=== PATIENT | male | born 1950 | race Hispanic/Latino ===

== ENCOUNTER 2022-03-28 11:04 | Inpatient (IN) | payer OTHER ==
[2022-03-28 11:56] LABS: Absolute Lymphocytes (CBC) 1.3 K/uL (0.7-4.9); Hematocrit 38.1 % (39.6-49.0); Lymphocytes % 14.2 % (15.3-44.8); MCV 98.3 fL (80-100); MPV 7.8 fL (7.6-11.3); RBC Red Blood Cell Count 3.87 M/uL (4.33-5.43)
[2022-03-28 12:17] LABS: Specific Gravity 1.015 (1.005-1.030); Urine Bilirubin Negative (Negative); Urine Blood 1+ (Negative); Urine Clarity Clear (Clear); Urine Color Yellow (Yellow); Urine Glucose Negative (Negative); Urine Protein Trace (Negative); Urine Urobilinogen 0.2 mg/dL (0.2-1.0)
[2022-03-28 12:33] LABS: Urine Bacteria <20 /HPF (<20); Urine Mucus 1+ /HPF (None Seen)
[2022-03-28 12:35] LABS: Albumin 3.3 g/dL (3.4-5.0); Bilirubin Direct 0.2 mg/dL (0-0.2); Bilirubin Total 0.6 mg/dL (0.2-1.0); Phosphorus 3.2 mg/dL (2.5-4.9); Potassium 3.6 mmol/L (3.5-5.1); Protein, Total 7.4 g/dL (6.4-8.2); Thyroid Stimulating Hormone 1.36 uIU/mL (0.360-3.740)
[2022-03-28 12:37] LABS: Protime INR 1.05
[2022-03-28 12:48] LABS: UR MICROALBUMIN 6.3 mg/dL (< 1.9)
[2022-03-28 13:56] LABS: SARS-CoV-2 Antigen Rapid Res Negative (Negative)
[2022-03-28] MEDS ORDERED: DIPHENHYDRAMINE 25 MG TAB/CAP PO PRN (15:05)
[2022-03-28] MEDS ORDERED: ACETAMINOPHEN 325 MG TABLET PO PRN (15:05)
[2022-03-28] MEDS ORDERED: LOPERAMIDE HCL 2 MG CAPSULE PO PRN (15:05)
[2022-03-28] MEDS ORDERED: POLYETHYL GLY 3350 17 GM/DOSE PO PRN (15:05)
[2022-03-28] MEDS ORDERED: ONDANSETRON 4 MG/2 ML VIAL IV PRN (15:05)
[2022-03-28] MEDS ORDERED: CEFTRIAXONE 1000 MG/VIAL ONE (15:30)
[2022-03-28] MEDS ORDERED: NA CHLORIDE 0.9% 50 ML ONE (15:38)
[2022-03-28] MEDS: CEFTRIAXONE 1,000 MG in NA CHLORIDE 0.9% 50 ML IVPB SCH ×2 (15:55→21:50)
[2022-03-28] MEDS: NACHLORIDE 0.45% 1,000 ML IV SCH (15:55)
--- NOTE | 2022-03-28 15:59 | RAD REPORT ---
EXAM DESCRIPTION: CT - Abdomen Pelvis W Contrast - 03/28/2022 3:29 pm CLINICAL HISTORY: Abdominal pain/testicle swelling/abscess COMPARISON: none. TECHNIQUE: Computed axial tomography of the abdomen pelvis was obtained. 100 cc Isovue-300 was admin istered intravenously. Oral contrast was not requested which limits evaluation of bowel and appendix All CT scans are performed using dose optimization technique as appropriate and may include automated exposure control or mA/KV adjustment according to patient size. FINDINGS: Moderate hiatal hernia Mild fatty liver Spleen, pancreas, adrenals and kidneys unremarkable Bladder is markedly distended. Large diverticulum stems from left lateral bladder wall. Prostate glan d is moderately enlarged. Small right and small to moderate left inguinal hernias contain fat. Scrotal skin thickening. Moderate fluid collection within the left scrotum. 8 millimeter calcificatio n within the left scrotum. There is no evidence of diverticulitis. IMPRESSION: Marked bladder distention Moderate fluid collection within the left scrotum incompletely evaluated on this exam may represent a hydrocele. Ultrasound is recommended.
[2022-03-28 16:21] VITALS: BMI 25.1
--- NOTE | 2022-03-28 16:56 | RAD REPORT ---
EXAM DESCRIPTION: Yuko Pa And Lat (2 Views)03/28/2022 4:51 pm CLINICAL HISTORY: Weakness COMPARISON: 2015 FINDINGS: Nodular opacity overlying the first left rib is unchanged and likely benign Lungs appear clear of acute infiltrate. The heart is normal size IMPRESSION: No acute abnormalities displayed
[2022-03-28] MEDS ORDERED: PNEUMOCOCCAL VACCINE 0.5 ML IMVAC ONE (17:00)
[2022-03-28] MEDS: ENOXAPARIN 40 MG/0.4 ML SQ SCH (17:52)
--- NOTE | 2022-03-28 19:44 | RAD REPORT ---
EXAM DESCRIPTION: US - Scrotum Testicles - 03/28/2022 7:17 pm CLINICAL HISTORY: Testicular pain COMPARISON: None FINDINGS: Right testicle measures 3.5 x 1.9 x 2.2 centimeters. Echotexture is homogeneous. Normal bl ood flow Left testicle measures 3.5 x 1.9 x 2.2 centimeters centimeters. Increased blood flow 4 millimeter right spermatocele. Right epididymis demonstrates normal echogenicity and size. Normal b lood flow is seen. Left epididymis is normal in size and echotexture. Complex left hydrocele contains debris and septations. It also a calcification. Small to moderate left and small right inguinal hernias contain fat Scrotal skin thickening. Right varicocele IMPRESSION: Increased blood flow left testicle probably orchitis Moderate complex left hydrocele
[2022-03-28] MEDS: ROSUVASTATIN 10 MG TAB PO SCH (20:40)
[2022-03-28] MEDS: carvediloL 25 MG TAB PO SCH (20:40)
[2022-03-28] MEDS: TAMSULOSIN 0.4 MG SR CAP PO SCH (20:41)
[2022-03-28] MEDS: HYDROMORPHONE HCL 1 MG/ML INJ IV PRN (20:48)
[2022-03-28 23:24] VITALS: O2SAT 96
[2022-03-29 03:57] LABS: Absolute Lymphocytes (CBC) 1.8 K/uL (0.7-4.9); Hematocrit 32.7 % (39.6-49.0); Lymphocytes % 20.3 % (15.3-44.8); MCV 97.9 fL (80-100); MPV 7.7 fL (7.6-11.3); RBC Red Blood Cell Count 3.34 M/uL (4.33-5.43)
[2022-03-29] MEDS ORDERED: HOME MED 1 EA UNK (Omeprazole [Omeprazole] 20 MG Capsule.Dr) PO SCH (09:00)
[2022-03-29] MEDS ORDERED: HOME MED 1 EA UNK (Losartan Potassium [Losartan Potassium] 100 MG Tablet) PO SCH (09:00)
[2022-03-29] MEDS ORDERED: HOME MED 1 EA UNK (Rosuvastatin Calcium [Rosuvastatin Calcium] 20 MG Tablet) PO SCH (09:00)
[2022-03-29] MEDS: carvediloL 25 MG TAB PO SCH ×2 (10:18→21:00)
[2022-03-29] MEDS: CEFTRIAXONE 1,000 MG in NA CHLORIDE 0.9% 50 ML IVPB SCH ×2 (10:18→20:46)
[2022-03-29] MEDS: ENOXAPARIN 40 MG/0.4 ML SQ SCH (10:18)
[2022-03-29] MEDS: PANTOPRAZOLE 40MG TABLET PO SCH (10:18)
[2022-03-29] MEDS: LOSARTAN POTASSIUM 50 MG TABLET PO SCH (10:19)
[2022-03-29] MEDS: HYDROMORPHONE HCL 1 MG/ML INJ IV PRN ×2 (15:14→20:46)
--- NOTE | 2022-03-29 17:11 | P.CNS ---
Date of Consult: 03/29/22 Reason for Consult: Suspected scrotal abscess Requesting Physician: Sunny Mosquera V Primary Care Provider: Sunny Mosquera Chief Complaint: Left scrotal/testicular pain History of Present Illness: 71-year-old gentleman with hypertension, hypercholesterolemia and GERD s/p left inguinal hernia repair several years ago presents with left hemiscrotal swelling and pain since Monday. He notes he was helping a worker who was installing some posts in his yard lift some heavy things on Monday, and 2 days later, he noted the swelling to occur. He has pre-existing LUTS presumptively due to BPH and has been managed on Flomax 0.4 mg daily by a urologist he saw in consultation at either [facility] or [facility] in [place] because of elevated PSA. He never underwent a prostate biopsy. He has been told he has an enlarged prostate, and his LUTS consist of the following: Incomplete emptying 5 Frequency 4 Urgency 2 Intermittency 4 Weak stream 5 Straining 2 AUA symptom score > 22/35 He had sexual activity with his , vaginal and occasionally oral prior to this occurring. He also acknowledges having seen a bit of gross hematuria/urethral bleeding around this time, but that has resolved. He had some asbestos exposure and worked with [employer] but no direct organic chemical exposures. Past medical and surgical history -relevant documented above Possible allergy to Levaquin Social history: Former social smoker during college Examination: Afebrile and vital signs stable throughout hospital course Well-appearing, well-developed, well-nourished, no acute distress No dyspnea or sign of respiratory distress Alert, awake, oriented x3 Abdomen soft, nontender, nondistended, no masses, no suprapubic tenderness Genitalia: Uncircumcised without lesion, orthotopic meatus patent without discharge. No urethral tenderness. No crepitus in the suprapubic region or in the phallus. Left hemiscrotum enlarged relative to the right due to firm and tender left testis. No scrotal crepitus noted. No abscess noted. Subcutaneous inferior left hemiscrotal skin nodule consistent with possible sebaceous cystic lesion. Musculoskeletal: Ambulatory with ease and without need for walking aid or assistance Laboratory values 03/28/2022 and 03/29/2022 WBC 9.3-8.7, creatinine 0.97, UA micro >50 WBC per hpf, 3+ leukocyte Estrace, negative nitrites Urine culture pending Scrotal ultrasound 03/28/2022 impression: Increased blood flow to the left testis consistent with orchitis. Moderately complex left hydrocele noted. Normal right testis and epididymis. CT abdomen and pelvis with contrast 03/28/2022 impression: Scrotal skin thickening and 8 mm calcification within the left scrotum. Marked bladder distention with large diverticulum from left lateral wall of the bladder. Prostate gland moderately enlarged. Moderate fluid collection within the left scrotum. Small right and small to moderate left inguinal hernias containing fat. Normal kidneys, adrenals, spleen and pancreas. Assessment and recommendation: 71-year-old gentleman with hypertension, hypercholesterolemia and GERD s/p left inguinal hernia repair with BPH with obstruction and LUTS refractory to Flomax 0.4 mg daily, now complicated by left epididymoorchitis with reactive complex hydrocele, with left lateral wall bladder diverticulum developed as a stigmata of obstruction, and 8 mm calcification within the left scrotum seen on ultr asound potentially consistent with left hemiscrotal superficial cystic skin lesion. -I counseled the patient and his that the infection in his testicle is a complication of his BPH, and the recommendation at this point would be surgical therapy to manage his obstruction. This is all the more poignant given the bladder diverticulum observed on CT scan. -To that end, I recommend at least 2 to 3 weeks of culture sensitive antimicrobial therapy to resolve the orchitis -Bactrim, Cipro/Levaquin, or an oral third/fourth generation cephalosporin recommended to have adequate tissue penetration. -Increase Flomax to 0.8 mg daily -After resolution of the orchitis in about 3 weeks, obtain a PSA blood test with at least 3 to 5 days of sexual abstinence prior -Follow-up for cystoscopy and MICHAEL in about a month, and we will review the result of the PSA and determine the appropriateness for surgical therapy -I did discuss with him the potential role for a 5 alpha reductase inhibitor, but since this takes at minimum 6 months to begin to see a benefit, 1 to 2 years of therapy to achieve the benefit, and only works in about 65% of men, it is not recommended as the approach once a man is experienced a complication of his obstruction due to BPH. At this point, surgical therapy is recommended. -We will also consider excision of the superficial scrotal cystic skin lesion at the time of operative management of his prostate since I have seen very esoteric malignant diagnoses from what were otherwise apparent to be/looked like sebaceous cysts. Allergies levofloxacin [From Levaquin] Allergy (Verified 03/28/22 20:39) Rash Home medications list reviewed: Yes Home Medications: Carvedilol [Coreg] 25 mg PO BID 03/28/22 Losartan Potassium 100 mg PO DAILY 03/28/22 Omeprazole 20 mg PO DAILY 03/28/22 Rosuvastatin Calcium 20 mg PO DAILY 03/28/22 Tamsulosin HCl [Flomax] 0.4 mg PO BEDTIME 03/28/22 - Past Medical/Surgical History Diabetic: No -: HTN -: acid reflux -: arthritis -: pseudogout - Social History Smoking Status: Former smoker Alcohol use: Yes Place of Residence: Home Physical Examination Temp Pulse Resp BP Pulse Ox 98.2 F 77 16 146/87 H 95 03/29/22 16:00 03/29/22 16:00 03/29/22 16:00 03/29/22 16:00 03/29/22 16:00 General: Alert, In no apparent distress, Oriented x3, Cooperative HEENT: Atraumatic, Normocephalic, Mucous membr. moist/pink, Sclerae nonicteric Respiratory: Normal air movement Gastrointestinal: Soft and benign, Non-distended, No masses, No rebound, No guarding Neurological: Normal gait, Normal speech External genitalia: Other (as above) Laboratory Data (last 24 hrs) 03/29/22 02:57: Sodium 139, Potassium 4.0, BUN 12, Creatinine 0.86, Glucose 113 H 03/29/22 02:57: WBC 8.70, Hgb 11.1 L, Hct 32.7 L, Plt Count 232 Conclusions/Impression: see above in HPI under assessment and recommendations Critical Care: No Time Spent Managing Pts care (In Minutes): 45
[2022-03-29] MEDS ORDERED: CEFTRIAXONE 1000 MG/VIAL ONE (20:11)
[2022-03-29] MEDS ORDERED: NA CHLORIDE 0.9% 100 ML ONE (20:50)
[2022-03-29] MEDS: ROSUVASTATIN 10 MG TAB PO SCH (21:00)
[2022-03-29] MEDS: TAMSULOSIN 0.4 MG SR CAP PO SCH (21:00)
--- NOTE | 2022-03-29 21:00 | P.PN ---
Subjective Date of Service: 03/29/22 Primary Care Provider: Sunny Mosquera Chief Complaint: Left scrotal/testicular pain Subjective: Improving HIS PAIN IS LOT BETTER COMPARED TO YESTERDAY. DR MILLS SAW PATIENT TODAY. Review of Systems 10-point ROS is otherwise unremarkable General: Weakness Integumentary: As per HPI Physical Examination - Vital Signs Temperature: 98.2 F Blood Pressure: 146/87 Pulse: 77 Respirations: 16 Pulse Ox (%): 95 - Physical Exam General: Oriented x3, Moderate distress HEENT: Atraumatic, PERRLA, EOMI Neck: Supple, JVD not distended Respiratory: Clear to auscultation bilaterally, Normal air movement Cardiovascular: Regular rate/rhythm, Normal S1 S2 Gastrointestinal: Normal bowel sounds, No tenderness Musculoskeletal: No tenderness Integumentary: No rashes Neurological: Normal speech, Normal tone, Normal affect Lymphatics: No axilla or inguinal lymphadenopathy External genitalia: Other (L SCRTOTAL TENDERNESS AND SWELLING OF EPIDIDYMIS IMPROVED. ) - Studies Laboratory Data (last 24 hrs) 03/29/22 02:57: Sodium 139, Potassium 4.0, BUN 12, Creatinine 0.86, Glucose 113 H 03/29/22 02:57: WBC 8.70, Hgb 11.1 L, Hct 32.7 L, Plt Count 232 Medications List Reviewed: Yes Assessment And Plan - Current Problems (Diagnosis) (1) Acute epididymitis Current Visit: Yes Status: Acute Plan: SEVERE PAIN AND SWELLING HAS IMPROVED SOME. MAY BE ABLE TO GO HOME IN AM. (2) BPH (benign prostatic hyperplasia) Current Visit: Yes Status: Chronic Plan: PER DR. Ellsworth WILL NEED SURGERY. ABX FOR 2-3 WEEKS BEFORE THAT.
[2022-03-29] MEDS ORDERED: LIDOCAINE JELLY 2% 5 ML SYRINGE TOP ONE ×2 (21:48→22:02)
[2022-03-29] MEDS ORDERED: TAMSULOSIN 0.4 MG SR CAP PO SCH (22:00)
[2022-03-30] MEDS: NACHLORIDE 0.45% 1,000 ML IV SCH (01:20)
[2022-03-30 03:52] LABS: Absolute Lymphocytes (CBC) 1.5 K/uL (0.7-4.9); Hematocrit 32.6 % (39.6-49.0); Lymphocytes % 21.4 % (15.3-44.8); MCV 98.5 fL (80-100); MPV 7.6 fL (7.6-11.3); RBC Red Blood Cell Count 3.31 M/uL (4.33-5.43)
[2022-03-30 04:04] LABS: Potassium 3.8 mmol/L (3.5-5.1)
[2022-03-30] MEDS ORDERED: POTASSIUM 25 MEQ EFFERV TAB PO ONE (06:00)
[2022-03-30] MEDS: PANTOPRAZOLE 40MG TABLET PO SCH (07:30)
[2022-03-30] MEDS: carvediloL 25 MG TAB PO SCH (09:00)
[2022-03-30] MEDS: ENOXAPARIN 40 MG/0.4 ML SQ SCH (09:00)
[2022-03-30] MEDS: LOSARTAN POTASSIUM 50 MG TABLET PO SCH (09:00)
[2022-03-30 09:23] VITALS: BP 176/97; TEMP 98.4
[2022-03-30] MEDS: CEFTRIAXONE 1,000 MG in NA CHLORIDE 0.9% 50 ML IVPB SCH (09:51)
[2022-03-30] MEDS ORDERED: PNEUMOCOCCAL VACCINE 0.5 ML IMVAC ONE (11:00)
--- NOTE | 2022-03-30 15:43 | EKG ---
Test Date: 2022-03-29 Test Time: 08:51:03 Qualification Engineer: ISAÍAS MEASUREMENT RESULTS: Intervals: Rate: 76 [place]: 160 QRSD: 80 QT: 416 QTc: 468 [place]: P: 33 [place]: 160 QRS: 3 T: 18 INTERPRETIVE STATEMENTS: Normal sinus rhythm Normal ECG Compared to ECG 05/10/2004 14:08:00 No significant changes Electronically Signed On 03-30-22 15:42:13 CDT by Terence Dia
== END 2022-03-30 11:15 | disposition home or self-care (01) | DRG 728 ==
LOC: LAB 11:04 → 4TH 14:33 → OBSVTOIN 14:33
PROVIDERS: ADMIT Internal Medicine; ATTEND Internal Medicine
DX: N45.1 Epididymitis (principal); I10 Essential (primary) hypertension; E78.5 Hyperlipidemia, unspecified; N40.0 Benign prostatic hyperplasia without lower urinary tract symptoms; N49.2 Inflammatory disorders of scrotum; Z23 Encounter for immunization; Z86.16 Personal history of COVID-19; Z79.52 Long term (current) use of systemic steroids; Z79.899 Other long term (current) drug therapy; Z20.822 Contact with and (suspected) exposure to COVID-19
CPT/HCPCS: 36415; 71046; 74177; 76870; 80048; 80076; 81001; 82043; 82306; 82570; 82607; 83036; 83735; 84100; 84443; 85025; 85610; 85730; 87040; 87086; 87088; 87811; 90471; 90732; 93005; J1170; J1650; Q9967